=== PATIENT | male | born 1990 | race Two or more races ===

== ENCOUNTER 2016-12-06 04:18 | Emergency (ER) | payer SELFPAY ==
[~2016-12-06] VITALS: Ht 172.7 cm; Wt 68.0 kg
[2016-12-06] MEDS ORDERED: SODIUM CHLORIDE 0.9% 1,000 ML IV ONE ×2 (04:45→07:00)
[2016-12-06 04:50] LABS: Basophils # (auto) 0.1 uL; Basophils % (auto) 0.4 % (0.0-2.0); Eosinophils # (auto) 0.1 uL; Eosinophils % (auto) 0.6 % (0.0-7.0); Hematocrit 45.8 % (41.0-53.0); Hemoglobin 14.9 g/dL (13.5-17.5); Lymphocytes # (auto) 1.8 uL; Lymphocytes % (auto) 12.5 % (10.0-50.0); Mean Corpuscular Hemoglobin 27.8 pg (28.0-32.0); Mean Corpuscular Hgb Conc. 32.6 g/dL (32.0-36.0); Mean Corpuscular Volume 85.3 fL (80.0-100.0); Monocytes # (auto) 0.9 uL; Monocytes % (auto) 6.4 % (0.0-12.0); Neutrophils # (auto) 11.8 uL; Neutrophils % (auto) 80.1 % (37.0-80.0); Platelet Count (auto) 405 10^3/uL (140-450); Red Cell Distribution Width 15.3 % (11.6-16.0); White Blood Cell 14.8 10^3/uL (4.4-10.8)
[2016-12-06 05:11] LABS: Albumin 3.6 g/dL (3.4-5.0); Anion Gap 7 (5-15); Blood Urea Nitrogen 12 mg/dL (7-18); Calcium 8.5 mg/dL (8.5-10.1); Carbon Dioxide 30 mmol/L (21-32); Chloride 104 mmol/L (98-107); Glucose 90 mg/dL (74-106); Magnesium 2.4 mg/dL (1.6-2.6); Potassium 3.8 mmol/L (3.5-5.1); Sodium 141 mmol/L (136-145)
[2016-12-06 05:13] LABS: Aspartate Aminotransferase 195 U/L (15-37); BUN/Creatinine Ratio 11.3; GFR African American 110 mL/min; GFR Non-African American 91 mL/min; Salicylate < 1.7 mg/dL (2.8-20.0)
[2016-12-06 05:19] LABS: Alkaline Phosphatase 149 U/L (45-117); Bilirubin, Total 0.3 mg/dL (0.2-1.0); Total Protein 7.9 g/dL (6.4-8.2)
[2016-12-06 05:20] LABS: Acetaminophen < 2.0 ug/mL (10-30)
[2016-12-06 05:30] LABS: Urine Bilirubin Negative (Negative); Urine Blood TRACE /uL (Negative); Urine Color Yellow (Yellow); Urine Glucose Normal (Normal); Urine Hyaline Cast MOD /lpf (0 - 2); Urine Ketone Negative (Negative); Urine Mucus FEW (None Seen); Urine Nitrite Negative (Negative); Urine RBC 25 /hpf (0 - 3); Urine Sperm PRESENT /hpf (None Seen); Urine Squamous Epithelial Cell FEW /hpf (<5); Urine Urobilinogen Normal (Negative); Urine pH 5.5 (5.0-8.0)
[2016-12-06 06:24] VITALS: BP 115/65
== END 2016-12-06 09:19 | disposition home or self-care (01) ==
LOC: ER 04:29
DX: J40 Bronchitis, not specified as acute or chronic (principal); F15.10 Other stimulant abuse, uncomplicated
CPT/HCPCS: 36415; 71010; 80053; 80320; 80329; 81001; 83735; 85025; 93005; 96360; 96361; 99285; G0434; J7030